=== PATIENT | female | born 1985 | race Caucasian/White ===

== ENCOUNTER 2021-07-10 23:05 | Emergency (ER) | payer BC, OTHER ==
[2021-07-10 23:25] VITALS: BP 123/84; PULSE 80; TEMP 99; BMI 26.9
== END 2021-07-11 00:05 | disposition home or self-care (01) ==
LOC: FER 23:05
DX: S53.401A Unspecified sprain of right elbow, initial encounter (principal)
CPT/HCPCS: 73070-TC-RT-FY; 99284-25